=== PATIENT | female | born 1950 ===

== ENCOUNTER 2024-11-01 07:39 | Inpatient (IN) | payer OTHER ==
[~2024-11-01] VITALS: Ht 167.6 cm; Wt 68.5 kg
[2024-11-01 08:22] LABS: HEMATOCRIT 36.8 % (36.0-45.00); HEMOGLOBIN 12.8 g/dL (12.0-15.00); MEAN CELL VOLUME 89.5 fL (80.00-100.00); MEAN CORPUSCULAR HEMOGLOBIN 31.1 pg (27.00-32.0); MEAN CORPUSCULAR HGB CONC 34.8 g/dl (32.0-36.0); PLATELET COUNT 328 K/uL (150-450); RED CELL DISTRIBUTION WIDTH 14.4 % (11.5-14.5)
[2024-11-01 08:23] LABS: URINE APPEARANCE Clear; URINE BILIRRUBIN Negative (NEGATIVE); URINE BLOOD Negative; URINE COLOR Yellow; URINE GLUCOSE Negative (NEGATIVE); URINE KETONE Negative (NEGATIVE); URINE LEUKOCYTE Small; URINE NITRATE Negative; URINE PROTEIN Negative (NEGATIVE); URINE UROBILINOGEN 0.2 E.U./dl
[2024-11-01 08:24] LABS: URINE BACTERIA 14.6 uL (0.0-1933); URINE RBC 4.7 uL (0.0-20.8); URINE WBC 28.3 uL (0.0-23.2)
[2024-11-01 08:38] LABS: URINE CAST 0.29 uL (0.0-1.40)
[2024-11-01] MEDS ORDERED: LORAZEPAM2 MG PO (08:38)
[2024-11-01] MEDS ORDERED: METFORMIN HCL500 M3 PO (08:38)
[2024-11-01] MEDS ORDERED: TENORMIN50 M1 PO (08:39)
[2024-11-01] MEDS ORDERED: NORVASC5 MG PO (08:39)
[2024-11-01] MEDS ORDERED: VALSARTAN-HCTZ1 EACH PO (08:39)
[2024-11-01] MEDS ORDERED: BACLOFEN10 MG PO (08:40)
[2024-11-01 08:52] LABS: INR 0.99; PARTIAL THROMBOPLASTIN TIME 25.1 SECONDS (22.0-34.0); PROTHROMBIN TIME 10.8 SECONDS (9.0-11.5)
[2024-11-01 09:29] VITALS: BP 140/70
[2024-11-01 09:33] VITALS: BP 140/67
[2024-11-01 10:14] LABS: CHOL HDL RATIO 2.5 (0-5.0)
[2024-11-01 10:17] LABS: BILIRUBIN TOTAL 0.4 mg/dL (0.3-1.2); CALCIUM 9.8 mg/dL (8.5-10.1); CREATININE SERUM 0.84 mg/dL (0.55-1.02); GFR 66.46; GLOBULINA 3.3 G/DL (2.4-3.5); POTASSIUM 4.08 mEq/L (3.5-5.1); TOTAL PROTEIN 7.3 gm/dL (6.4-8.2)
[2024-11-01 11:33] LABS: RH POSITIVE
[2024-11-09] MEDS ORDERED: KETOROLAC TROMETHAMINE 60 MG VIAL IM ONE (08:02)
[2024-11-09] MEDS ORDERED: TRANEXAMIC ACID 100MG/1ML (1000MG) AMPUL IV ONE (08:03)
[2024-11-09] MEDS ORDERED: CEFAZOLIN SODIUM 1,000 MG VIAL ONE (08:03)
[2024-11-09] MEDS ORDERED: VANCOMYCIN HCL 1,000 MG VIAL ONE (08:07)
[2024-11-09] MEDS ORDERED: MORPHINE SULFATE 4 MG/ML VIAL IV ONE ×2 (09:00→11:40)
[2024-11-09] MEDS ORDERED: MORPHINE SULFATE 4 MG/ML CARTRIDGE IV PRN (10:30)
[2024-11-09] MEDS ORDERED: OxyCODONE HCL 5 MG TABLET (ROXICODONE) PO PRN (10:30)
[2024-11-09] MEDS ORDERED: ONDANSETRON HCL 2 MG/ML VIAL IV PRN (10:30)
[2024-11-09] MEDS ORDERED: SODIUM CHLORIDE 0.45 % 1,000 ML IV SCH (10:30)
[2024-11-09] MEDS ORDERED: ACETAMINOPHEN 500 MG GEL..CAP PO SCH (12:00)
[2024-11-09] MEDS ORDERED: ONDANSETRON HCL 2 MG/ML VIAL ONE (13:06)
[2024-11-09 16:33] VITALS: BP 140/70
[2024-11-09] MEDS ORDERED: CEFAZOLIN SODIUM 1,000 MG VIAL IV SCH (17:00)
[2024-11-09] MEDS ORDERED: GABAPENTIN 300 MG CAPSULE PO SCH (17:00)
[2024-11-09 20:55] VITALS: BP 121/58
[2024-11-09 23:39] VITALS: BP 113/60
[2024-11-10 06:31] LABS: HEMATOCRIT 32.9 % (36.0-45.00); HEMOGLOBIN 11.2 g/dL (12.0-15.00); MEAN CELL VOLUME 90.5 fL (80.00-100.00); MEAN CORPUSCULAR HEMOGLOBIN 30.9 pg (27.00-32.0); MEAN CORPUSCULAR HGB CONC 34.2 g/dl (32.0-36.0); PLATELET COUNT 287 K/uL (150-450); RED BLOOD COUNT 3.64 M/uL (4.00-6.00)
[2024-11-10 07:57] VITALS: BP 112/60
[2024-11-10] MEDS ORDERED: ELIQUIS2.5 MG PO (08:30)
[2024-11-10] MEDS ORDERED: PERCOCET 5-3251 EACH PO (08:30)
[2024-11-10] MEDS ORDERED: DUI500 PO (08:30)
[2024-11-10] MEDS ORDERED: APIXABAN 2.5 MG TABLET PO SCH (09:00)
[2024-11-10] MEDS ORDERED: AMLODIPINE BESYLATE 5 MG TABLET PO SCH (09:00)
[2024-11-10] MEDS ORDERED: ATENOLOL 50 MG TABLET PO SCH (09:00)
[2024-11-10] MEDS ORDERED: SENNOSIDES 1 TAB TABLET PO SCH (09:00)
[2024-11-10] MEDS ORDERED: Cyanocobalamin/Mecobalamin 1 TAB.SL SL NR (16:00)
[2024-11-10 16:32] VITALS: BP 109/60
[2024-11-10] MEDS ORDERED: SOD FERRIC GLUC COMPLX/SUCROSE 62.5 MG/5 ML AMPUL IV SCH (17:00)
[2024-11-10] MEDS ORDERED: VITAMIN B COMPLEX 1 EACH PO SCH (17:00)
[2024-11-10] MEDS ORDERED: SOD FERRIC GLUC COMPLX/SUCROSE 62.5 MG/5 ML AMPUL IV NR (19:30)
[2024-11-11 03:02] VITALS: BP 119/60
[2024-11-11 06:28] LABS: HEMATOCRIT 30.2 % (36.0-45.00); HEMOGLOBIN 10.6 g/dL (12.0-15.00); MEAN CELL VOLUME 88.5 fL (80.00-100.00); MEAN CORPUSCULAR HEMOGLOBIN 31.1 pg (27.00-32.0); MEAN CORPUSCULAR HGB CONC 35.1 g/dl (32.0-36.0); PLATELET COUNT 243 K/uL (150-450); RED BLOOD COUNT 3.41 M/uL (4.00-6.00); RED CELL DISTRIBUTION WIDTH 14.4 % (11.5-14.5)
[2024-11-11 08:14] VITALS: BP 119/63
[2024-11-11] MEDS ORDERED: IRON FUM,PS/FOLIC ACID/VITC/B3 1 CAP CAPSULE PO SCH (09:00)
[2024-11-11] MEDS ORDERED: Cyanocobalamin/Mecobalamin 1 TAB.SL SL SCH (09:00)
[2024-11-11 15:48] VITALS: BP 106/64
[2024-11-11] MEDS ORDERED: PERCOCET 2.5-31 EACH PO (17:23)
== END 2024-11-11 19:41 | disposition home or self-care (01) | DRG 470 ==
LOC: O/R 11-09 05:46 → OB/GYN 11-09 05:46 → SURH 11-09 07:45 → OB/GYN 11-09 14:30 → SURH 11-09 14:30 → OB/GYN 11-11 19:41
PROVIDERS: ADMIT Orthopaedic Surgery; ATTEND Orthopaedic Surgery
PROC: 0SUD07Z Supplement Left Knee Joint with Autologous Tissue Substitute, Open Approach (ICD-10-PCS; 2024-11-09)
PROC: 0SRD0J9 Replacement of Left Knee Joint with Synthetic Substitute, Cemented, Open Approach (ICD-10-PCS; principal; 2024-11-09 14:30)
DX: M17.12 Unilateral primary osteoarthritis, left knee (principal); D62 Acute posthemorrhagic anemia; M22.12 Recurrent subluxation of patella, left knee; I10 Essential (primary) hypertension; E11.9 Type 2 diabetes mellitus without complications; E78.5 Hyperlipidemia, unspecified; Z79.84 Long term (current) use of oral hypoglycemic drugs